=== PATIENT | female | born 1955 | race American Indian/Alaskan Native ===

== ENCOUNTER 2016-04-18 13:39 | Emergency (ER) | payer MEDICAID ==
[2016-04-18] MEDS ORDERED: MARCAINE 0.5% INFILTRATI ONE (14:29)
[2016-04-18] MEDS ORDERED: XYLOCAINE 1% 20 mL ONE (14:29)
[2016-04-18] MEDS ORDERED: MORPHINE ONE (14:39)
[2016-04-18] MEDS ORDERED: ZOFRAN ONE (14:39)
[2016-04-18] MEDS ORDERED: MORPHINE IV ONE ×2 (14:48→16:28)
[2016-04-18] MEDS ORDERED: ZOFRAN IV ONE (14:48)
--- NOTE | 2016-04-18 16:46 | Emergency Department Report ---
ED Fall HPI - General Chief Complaint: Extremity Injury, Upper Stated Complaint: FALL Time Seen by Provider: 04/18/16 14:40 Source: patient Mode of arrival: Stretcher - History of Present Illness Initial Comments: The patient states that she suffered a ground-level fall injuring her left and right hand. She is a very poor historian. She actually tells me that she has never injured her hand before. However she has previous x-rays indicating she had a metacarpal fracture and it looks like an injury to the DIP of her left fifth finger. In addition to that she tells me that she has had left hip pain for 3 months but has not seen anyone for that. She states that her hip feels worse since the fall as well as her lower back. It would appear that she does have some chronic pain. She had a mechanical fall; she did not have any prodromal symptoms, weakness dizziness etc. She reports no other complaint or injury. She arrives with an obvious left hand deformity. 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 Loss of Consciousness: none Prolonged Down Time?: no Symptoms Prior to Fall: none Location - Extremities: Left: Hand, Thigh (chronic l hip and back), Right: Hand Severity: moderate, severe Quality: aching Context: tripped/slipped Associated Symptoms: denies - Related Data Home Medications Medication Instructions Recorded Confirmed Last Taken NIFEdipine XL [Procardia Xl] 60 mg PO DAILY 07/28/15 07/28/15 07/28/15 Previous Rx's Medication Instructions Recorded Last Taken Type oxyCODONE /ACETAMINOPHEN [Percocet 1 tab PO Q6H PRN #15 tablet 10/01/15 Unknown Rx 5/325 mg] HYDROcodone/APAP 5-325 [[place] 1 each PO Q6HR PRN #14 tablet 12/23/15 Unknown Rx 5-325 mg TAB] Ketorolac [Toradol] 10 mg PO Q6H PRN #20 tablet 02/04/16 Unknown Rx oxyCODONE /ACETAMINOPHEN [Percocet 1 tab PO Q6HR PRN #20 tablet 04/18/16 Unknown Rx 5/325] Allergies Allergy/AdvReac Type Severity Reaction Status Date / Time No Known Allergies Allergy Verified 02/04/16 17:00 ED Review of Systems ROS: Stated complaint: FALL Other details as noted in HPI Constitutional: denies: chills, fever Eyes: denies: eye pain, eye discharge, vision change ENT: denies: ear pain, throat pain Respiratory: denies: cough, shortness of breath, wheezing Cardiovascular: denies: chest pain, palpitations Endocrine: no symptoms reported Gastrointestinal: denies: abdominal pain, nausea, diarrhea Genitourinary: denies: urgency, dysuria, discharge Musculoskeletal: as per HPI, back pain. denies: joint swelling, arthralgia Skin: denies: rash, lesions Neurological: denies: headache, weakness, paresthesias Psychiatric: denies: anxiety, depression Hematological/Lymphatic: denies: easy bleeding, easy bruising ED Past Medical Hx - Past Medical History Hx Hypertension: Yes Hx Diabetes: Yes (boderline no meds) Additional medical history: back pain, sciatica - Surgical History Hx Cholecystectomy: Yes Additional Surgical History: X 3. TUBAL LIGATION - Social History Smoking Status: Never Smoker Substance Use Type: None - Medications Home Medications: Home Medications Medication Instructions Recorded Confirmed Last Taken Type NIFEdipine XL [Procardia Xl] 60 mg PO DAILY 07/28/15 07/28/15 07/28/15 History oxyCODONE /ACETAMINOPHEN [Percocet 1 tab PO Q6H PRN #15 tablet 10/01/15 Unknown Rx 5/325 mg] HYDROcodone/APAP 5-325 [[place] 1 each PO Q6HR PRN #14 tablet 12/23/15 Unknown Rx 5-325 mg TAB] Ketorolac [Toradol] 10 mg PO Q6H PRN #20 tablet 02/04/16 Unknown Rx oxyCODONE /ACETAMINOPHEN [Percocet 1 tab PO Q6HR PRN #20 tablet 04/18/16 Unknown Rx 5/325] ED Physical Exam - General Limitations: No Limitations General appearance: alert, in no apparent distress - Head Head exam: Present: atraumatic, normocephalic - Eye Eye exam: Present: normal appearance. Absent: scleral icterus - ENT ENT exam: Present: normal exam, mucous membranes moist - Neck Neck exam: Present: normal inspection. Absent: tenderness, meningismus - Respiratory Respiratory exam: Present: normal lung sounds bilaterally. Absent: respiratory distress - Cardiovascular Cardiovascular Exam: Present: regular rate, normal rhythm. Absent: systolic murmur, diastolic murmur, rubs, gallop - GI/Abdominal GI/Abdominal exam: Present: soft, normal bowel sounds. Absent: distended, tenderness, guarding, rebound, rigid - Extremities Exam Extremities exam: Present: other (deformity l hand 1 cm lac r pip superficial) - Back Exam Back exam: Present: normal inspection - Neurological Exam Neurological exam: Present: alert, oriented X3, CN II-XII intact. Absent: motor sensory deficit - Psychiatric Psychiatric exam: Present: normal affect, normal mood - Skin Skin exam: Present: warm, dry, intact, normal color. Absent: rash ED Course Vital Signs 04/18/16 04/18/16 14:04 14:58 Temperature 99.4 F Pulse Rate 81 Respiratory 18 Rate Blood Pressure 190/84 O2 Sat by Pulse 97 99 Oximetry - Reevaluation(s) Reevaluation #1: Patient received IV analgesia. I performed a metacarpal block of her left hand using about 8 mL of lidocaine and Marcaine bilaterally. This achieved good results. Her finger fracture was well reduced. Her laceration was repaired. She was splinted and discharged. She will be referred to orthopedics. 04/18/16 16:47 - Laceration /Wound Repair Hand Wound Location: upper extremity Wound Length (cm): 1 Wound's Depth, Shape: superficial Wound Explored: clean Betadine Prep?: Yes Anesthesia: 1% Lidocaine Wound Debrided: minimal Suture Size/Type: 5:0 Number of Sutures: 2 Layer Closure?: No Sterile Dressing Applied?: Yes - Orthopedic Fracture Reduction Fracture #1 Consent Obtained: verbal consent Time Out Performed: No Side: left Fracture Reduction Location: finger Analgesia: digital block Technique: direct manipulation, traction/counter-traction Post Reduction X-rays Demonstrate: anatomical reduction Post-Reduction Neuro Exam: intact Post-Reduction Vascular Exam: intact Splint Applied: Yes Patient Tolerated Procedure: well Critical care attestation.: If time is entered above; I have spent that time in minutes in the direct care of this critically ill patient, excluding procedure time. ED Disposition Clinical Impression: Fracture of proximal phalanx of left hand, Chronic left hip pain Laceration of ring finger Qualifiers: Encounter type: initial encounter Qualified Code(s): S61.218A - Laceration without foreign body of other finger without damage to nail, initial encounter Lower back pain Qualifiers: Chronicity: chronic Back pain laterality: unspecified Sciatica presence: without sciatica Qualified Code(s): M54.5 - Low back pain; G89.29 - Other chronic pain Disposition: DISCHARGED TO HOME OR SELFCARE Is pt being admited?: No Does the pt Need Aspirin: No Condition: Stable Instructions: Finger Fracture (ED), Laceration (ED), Hip Sprain (ED), Arthralgia (ED) Additional Instructions: Sutures may be removed within 8 to 10 days. See orthopedist for further care of your other problems. Return any acute change or problem. Prescriptions: oxyCODONE /ACETAMINOPHEN [Percocet 5/325] 1 tab PO Q6HR PRN #20 tablet PRN Reason: Pain Referrals: PRIMARY CAREMD [Primary Care Provider] - 3-5 Days KATHARINA LANDEROS MD [Staff Physician] - 2-3 Days Time of Disposition: 16:55
[2016-04-18 17:37] VITALS: BP 164/81
--- NOTE | 2016-04-19 09:28 | XRay Report ---
LEFT HAND THREE VIEWS: 04/18/16 13:39:00 CLINICAL: Pain and deformity. FINDINGS: Comminuted transverse fracture of the proximal phalanx of the ring finger with lateral displacement of the major distal fracture fragment by almost one shaft width. No callus. Old healed fracture of the fourth metacarpal. A plate and screws traverse the first MCP joint. Swelling of the ring finger and swelling of the dorsum of the hand. No soft tissue air or foreign body. IMPRESSION: Acute traumatic displaced closed fracture of the proximal phalanx of the ring finger. Old healed fracture of the fourth metacarpal an status post fusion of the first MCP joint with a metal plate and screws.
--- NOTE | 2016-04-19 09:30 | XRay Report ---
LEFT HAND THREE VIEWS: 04/18/16 16:17 CLINICAL: Post reduction. FINDINGS: Since the previous exam at 14:51, the fracture of the proximal phalanx of the ring finger has been reduced. Alignment is near-anatomic. Exam is otherwise unchanged. IMPRESSION: Satisfactory reduction of fracture of the proximal phalanx of the ring finger.
--- NOTE | 2016-04-19 09:31 | XRay Report ---
LUMBAR SPINE THREE VIEWS: 04/18/16 13:39:00 CLINICAL: Fall and back pain. FINDINGS: A crosstable lateral views demonstrate normal alignment. Upper lumbar and lower thoracic levoscoliosis. Degenerative disc disease with vacuum disc phenomenon at L4-5. No fracture or subluxation. Multilevel facet joint sclerosis. The pedicles are intact. Normal soft tissues. IMPRESSION: Scoliosis and degenerative disc and facet joint disease. No apparent traumatic injury.
--- NOTE | 2016-04-19 09:32 | XRay Report ---
LEFT HIP THREE VIEWS: 04/18/16 13:39:00 CLINICAL: Fall and left hip pain. FINDINGS: Normal bones, joints and soft tissues. No fracture or dislocation. IMPRESSION: Normal.
== END 2016-04-18 17:18 | disposition home or self-care (01) ==
LOC: ED 13:39
DX: S62.645A Nondisplaced fracture of proximal phalanx of left ring finger, initial encounter for closed fracture (principal); S61.218A Laceration without foreign body of other finger without damage to nail, initial encounter; M54.5 Low back pain; M25.552 Pain in left hip; G89.29 Other chronic pain; I10 Essential (primary) hypertension; E11.9 Type 2 diabetes mellitus without complications; Z90.49 Acquired absence of other specified parts of digestive tract; Z98.51 Tubal ligation status; W01.0XXA Fall on same level from slipping, tripping and stumbling without subsequent striking against object, initial encounter; Y93.89 Activity, other specified; Y99.8 Other external cause status; Y92.009 Unspecified place in unspecified non-institutional (private) residence as the place of occurrence of the external cause
CPT/HCPCS: 12001; 26725; 72100; 73130; 73502; 96374; 96375; 96376; 99284; J2270; J2405

== ENCOUNTER 2016-05-08 17:11 | Emergency (ER) | payer MEDICAID ==
[2016-05-08 17:52] VITALS: BP 167/87
--- NOTE | 2016-05-08 18:51 | Emergency Department Report ---
HPI - General Chief Complaint: Extremity Problem,Nontraumatic Time Seen by Provider: 05/08/16 18:45 - HPI HPI: 60-year-old -Irish female with a past medical history of borderline 80s and hypertension comes in with a complaint of lower back and both hip pain that shoots down her left leg. Patient reports this isn't present for the last 2 weeks. Upon review of chart noticed the patient was here and 04/22/2017 as well as 04/18/2016 for the same issues. Patient reports that she just has an appointment for next Wednesday with orthopedic provider. Patient reports no known drug allergies. ED Past Medical Hx - Past Medical History Hx Hypertension: Yes Hx Diabetes: Yes (boderline no meds) Additional medical history: back pain, sciatica - Surgical History Hx Cholecystectomy: Yes Additional Surgical History: X 3. TUBAL LIGATION - Social History Smoking Status: Current Every Day Smoker Substance Use Type: None - Medications Home Medications: Home Medications Medication Instructions Recorded Confirmed Last Taken Type NIFEdipine XL [Procardia Xl] 60 mg PO DAILY 07/28/15 07/28/15 07/28/15 History oxyCODONE /ACETAMINOPHEN [Percocet 1 tab PO Q6H PRN #15 tablet 10/01/15 Unknown Rx 5/325 mg] HYDROcodone/APAP 5-325 [[place] 1 each PO Q6HR PRN #14 tablet 12/23/15 Unknown Rx 5-325 mg TAB] Ketorolac [Toradol] 10 mg PO Q6H PRN #20 tablet 02/04/16 Unknown Rx Cyclobenzaprine HCl [Flexeril 5 MG 5 mg PO TID #10 tab 04/18/16 Unknown Rx TAB] oxyCODONE /ACETAMINOPHEN [Percocet 1 tab PO Q6HR PRN #20 tablet 04/18/16 Unknown Rx 5/325] Cyclobenzaprine [Flexeril] 10 mg PO TID PRN #30 tablet 04/25/16 Unknown Rx HYDROcodone/APAP 5-325 [[place] 1 each PO Q6HR PRN #12 tablet 04/25/16 Unknown Rx 5/325] Acetaminophen with Codeine 1 tab PO Q6HR #20 tab 05/08/16 Unknown Rx [Acetaminophen-Codeine #4 TAB] Ibuprofen [Motrin 800 MG tab] 800 mg PO Q8HR PRN #30 tablet 05/08/16 Unknown Rx ED Review of Systems ROS: Stated complaint: SCIATICA NERVE/HIP PAIN Other details as noted in HPI Constitutional: denies: chills, fever Gastrointestinal: denies: abdominal pain, nausea, diarrhea Genitourinary: denies: urgency, dysuria, discharge Musculoskeletal: back pain Neurological: denies: headache, weakness, paresthesias Physical Exam - Physical Exam Vital Signs: Vital Signs 05/08/16 17:45 Temperature 99.1 F Pulse Rate 82 Respiratory 20 Rate Blood Pressure 167/87 O2 Sat by Pulse 100 Oximetry General: GENERAL: Alert and oriented x3, no apparent distress, Normal Gait, atraumatic. HEAD: Head is normocephalic and a-traumatic. EYES: Extra ocular muscles are intact. Pupils are equal, round, and reactive to light and accommodation. LUNGS: Symetrical with respiration, No wheezing, no rales or crackles, CTAB. HEART: S1, S2 present, regular rate and rhythm without murmur, no rubs, no gallops. EXTREMITIES/MUSCULOSKELETAL: No cyanosis, clubbing, rash, lesions or edema. Full ROM bilaterally. UE/LE Pulses 2+ bilaterally. LE and UE 5+ strength bilaterally straight leg exam positive left 15 angle right leg positive at 30 angle. There is tenderness to the left sacral notch. NEUROLOGIC: No focal Deficit, Cranial nerves II through XII are grossly intact. No loss of sensation, No facial droop, Negative rhomberg. PSYCHIATRIC: Mood is congruent with affect, denies suicidal or homicidal ideations. SKIN: Warm and dry, No lesions, No ulceration or induration present ED Course Vital Signs 05/08/16 17:45 Temperature 99.1 F Pulse Rate 82 Respiratory 20 Rate Blood Pressure 167/87 O2 Sat by Pulse 100 Oximetry ED Medical Decision Making - Medical Decision Making Assessment evaluated with his provider fast track. Discussed the patient we'll give her Toradol shot as well as her [place]. Discussed with her that she needs to follow with a pain management provider since she's been here 2 times in the month of April for the same issue. That she should follow-up for best management of her pain. Verbalized understanding Critical care attestation.: If time is entered above; I have spent that time in minutes in the direct care of this critically ill patient, excluding procedure time. ED Disposition Clinical Impression: Low back pain with sciatica Qualifiers: Chronicity: chronic Back pain laterality: left Sciatica laterality: sciatica of left side Qualified Code(s): M54.42 - Lumbago with sciatica, left side; G89.29 - Other chronic pain Disposition: DISCHARGED TO HOME OR SELFCARE Is pt being admited?: No Does the pt Need Aspirin: No Condition: Stable Instructions: Chronic Back Pain (ED), Sciatica (ED), Lumbar Radiculopathy (ED) Additional Instructions: It's very important for follow-up with her primary care provider for pain management. Prescriptions: Acetaminophen with Codeine [Acetaminophen-Codeine #4 TAB] 1 tab PO Q6HR #20 tab Ibuprofen [Motrin 800 MG tab] 800 mg PO Q8HR PRN #30 tablet PRN Reason: Pain Referrals: PRIMARY CARE, [Primary Care Provider] - 3-5 Days [facility] [Provider Group] - 3-5 Days
[2016-05-08] MEDS ORDERED: NORCO 5/325 PO ONE (18:52)
[2016-05-08] MEDS ORDERED: TORADOL IM ONE (18:52)
== END 2016-05-08 19:50 | disposition home or self-care (01) ==
LOC: ED 17:11
DX: M54.42 Lumbago with sciatica, left side (principal); G89.29 Other chronic pain; I10 Essential (primary) hypertension; Z98.51 Tubal ligation status; F17.200 Nicotine dependence, unspecified, uncomplicated; Z98.890 Other specified postprocedural states; Z90.49 Acquired absence of other specified parts of digestive tract
CPT/HCPCS: 96372; 99282; J1885

== ENCOUNTER 2016-07-07 17:55 | Emergency (ER) | payer MEDICAID ==
[2016-07-08] MEDS ORDERED: TORADOL IV ONE (02:10)
[2016-07-08] MEDS ORDERED: KETALAR IV ONE ×2 (02:10→02:50)
--- NOTE | 2016-07-08 02:11 | Emergency Department Report ---
ED General Adult HPI - General Chief complaint: Pain General Stated complaint: SCIATIC NERVE Time Seen by Provider: 07/08/16 02:00 Source: patient, EMS, RN notes reviewed, old records reviewed Mode of arrival: Ambulatory Limitations: Physical Limitation - History of Present Illness Initial comments: This is a 60-year-old female. I have evaluated her in the past. Her primary care doctor is Dr. Hill. Past medical history includes hypertension, chronic back pain, arthritis. The patient today comes to the hospital with EMS for an exacerbation of her acute pain. The pain is bilateral paralumbar, left hip, left thigh, and right hip. The pain occasionally radiate down the left lower extremity. It is intermittent, present for months. The patient reports that her primary care doctor started her on Percocet, 10 mg, and she has follow-up next week with the pain clinic. Her primary care doctor also gave her Flexeril. The pain is sharp, increases with palpation and range of motion. It decreases with rest. There is no chest pain, severe headache, neck pain, abdominal pain or shortness of breath. There is no bladder or bowel retention or incontinence. There is no saddle anesthesia. -: Gradual Location: back, left, right, lower extremity Quality: aching Consistency: intermittent Improves with: medication, rest Worsens with: movement Associated Symptoms: malaise. denies: confusion, chest pain, cough, diaphoresis , fever/chills, headaches, loss of appetite - Related Data Home Medications Medication Instructions Recorded Confirmed Last Taken NIFEdipine XL [Procardia Xl] 60 mg PO DAILY 07/28/15 07/28/15 07/28/15 Previous Rx's Medication Instructions Recorded Last Taken Type oxyCODONE /ACETAMINOPHEN [Percocet 1 tab PO Q6H PRN #15 tablet 10/01/15 Unknown Rx 5/325 mg] HYDROcodone/APAP 5-325 [[place] 1 each PO Q6HR PRN #14 tablet 12/23/15 Unknown Rx 5-325 mg TAB] Ketorolac [Toradol] 10 mg PO Q6H PRN #20 tablet 02/04/16 Unknown Rx Cyclobenzaprine HCl [Flexeril 5 MG 5 mg PO TID #10 tab 04/18/16 Unknown Rx TAB] oxyCODONE /ACETAMINOPHEN [Percocet 1 tab PO Q6HR PRN #20 tablet 04/18/16 Unknown Rx 5/325] Cyclobenzaprine [Flexeril] 10 mg PO TID PRN #30 tablet 04/25/16 Unknown Rx HYDROcodone/APAP 5-325 [[place] 1 each PO Q6HR PRN #12 tablet 04/25/16 Unknown Rx 5/325] Acetaminophen with Codeine 1 tab PO Q6HR #20 tab 05/08/16 Unknown Rx [Acetaminophen-Codeine #4 TAB] Ibuprofen [Motrin 800 MG tab] 800 mg PO Q8HR PRN #30 tablet 05/08/16 Unknown Rx Ketorolac [Toradol] 10 mg PO Q6H PRN #20 tablet 07/08/16 Unknown Rx Allergies Allergy/AdvReac Type Severity Reaction Status Date / Time No Known Allergies Allergy Verified 02/04/16 17:00 ED Review of Systems ROS: Stated complaint: SCIATIC NERVE Other details as noted in HPI Constitutional: malaise. denies: fever Eyes: denies: vision change ENT: denies: epistaxis Respiratory: denies: cough Cardiovascular: denies: chest pain Gastrointestinal: denies: abdominal pain Genitourinary: as per HPI. denies: urgency Musculoskeletal: back pain, arthralgia, myalgia Neurological: paresthesias. denies: headache ED Past Medical Hx - Past Medical History Previous Medical History?: Yes Hx Hypertension: Yes Hx Diabetes: Yes (boderline no meds) Additional medical history: back pain, sciatica - Surgical History Past Surgical History?: Yes Hx Cholecystectomy: Yes Additional Surgical History: X 3. TUBAL LIGATION - Social History Smoking Status: Current Every Day Smoker Substance Use Type: Prescribed - Medications Home Medications: Home Medications Medication Instructions Recorded Confirmed Last Taken Type NIFEdipine XL [Procardia Xl] 60 mg PO DAILY 07/28/15 07/28/15 07/28/15 History oxyCODONE /ACETAMINOPHEN [Percocet 1 tab PO Q6H PRN #15 tablet 10/01/15 Unknown Rx 5/325 mg] HYDROcodone/APAP 5-325 [[place] 1 each PO Q6HR PRN #14 tablet 12/23/15 Unknown Rx 5-325 mg TAB] Ketorolac [Toradol] 10 mg PO Q6H PRN #20 tablet 02/04/16 Unknown Rx Cyclobenzaprine HCl [Flexeril 5 MG 5 mg PO TID #10 tab 04/18/16 Unknown Rx TAB] oxyCODONE /ACETAMINOPHEN [Percocet 1 tab PO Q6HR PRN #20 tablet 04/18/16 Unknown Rx 5/325] Cyclobenzaprine [Flexeril] 10 mg PO TID PRN #30 tablet 04/25/16 Unknown Rx HYDROcodone/APAP 5-325 [[place] 1 each PO Q6HR PRN #12 tablet 04/25/16 Unknown Rx 5/325] Acetaminophen with Codeine 1 tab PO Q6HR #20 tab 05/08/16 Unknown Rx [Acetaminophen-Codeine #4 TAB] Ibuprofen [Motrin 800 MG tab] 800 mg PO Q8HR PRN #30 tablet 05/08/16 Unknown Rx Ketorolac [Toradol] 10 mg PO Q6H PRN #20 tablet 07/08/16 Unknown Rx ED Physical Exam - General Limitations: No Limitations, Physical Limitation General appearance: alert, obese - Head Head exam: Present: atraumatic, normocephalic - Eye Eye exam: Present: normal appearance, EOMI. Absent: nystagmus - ENT ENT exam: Present: normal exam, normal orophraynx, mucous membranes moist, normal external ear exam - Neck Neck exam: Present: normal inspection, full ROM. Absent: tenderness, meningismus - Respiratory Respiratory exam: Present: normal lung sounds bilaterally. Absent: respiratory distress, wheezes, rales, rhonchi, stridor, chest wall tenderness, accessory muscle use, decreased breath sounds, prolonged expiratory - Cardiovascular Cardiovascular Exam: Present: regular rate, normal rhythm, normal heart sounds. Absent: bradycardia, tachycardia, irregular rhythm, systolic murmur, diastolic murmur, rubs, gallop - GI/Abdominal GI/Abdominal exam: Present: soft, normal bowel sounds. Absent: distended, tenderness, guarding, rebound, rigid, pulsatile mass - Extremities Exam Extremities exam: Present: normal inspection, full ROM, normal capillary refill , other (the compartments are soft. There are 2+ pulses noted in 4 extremities. The pelvis is stable. Sensation is intact to light touch and pinprick in 4 extremities. Downgoing plantar reflexes.). Absent: pedal edema, calf tenderness - Back Exam Back exam: Present: normal inspection, full ROM, paraspinal tenderness, vertebral tenderness - Neurological Exam Neurological exam: Present: alert, oriented X3, normal gait (the patient walks with a one-person assist with minimal discomfort.), other (Extraocular movements intact. Tongue midline. No facial droop. Facial sensation intact to light touch in the V1, V2, V3 distribution bilaterally. 5 and 5 strength in 4 extremities.. Sensation is intact to light touch in 4 extremities.). Absent : motor sensory deficit - Psychiatric Psychiatric exam: Present: normal affect, normal mood - Skin Skin exam: Present: warm, dry, intact, normal color. Absent: rash ED Course Vital Signs 07/07/16 07/08/16 07/08/16 18:34 00:39 00:45 Temperature 98.7 F Pulse Rate 75 76 Respiratory 20 18 16 Rate Blood Pressure 140/102 Blood Pressure 182/100 [Left] O2 Sat by Pulse 100 100 Oximetry 07/08/16 07/08/16 04:05 04:07 Temperature Pulse Rate 80 82 Respiratory 18 18 Rate Blood Pressure Blood Pressure 219/103 196/87 [Left] O2 Sat by Pulse 100 99 Oximetry - Reevaluation(s) Reevaluation #1: 07/08/16 04:15 Differential diagnosis: Urinary tract infection, DJD, acute exacerbation of chronic musculoskeletal pain assessment and plan: 60-year-old female with an acute exacerbation of her musculoskeletal pain. Her clinical findings today do not suggest epidural compression syndrome. There is no pulsatile abdominal mass, and she has equal pulses in 4 extremities. Patient occasionally has elevated blood pressure. Her pain and symptoms improved with Toradol and ketamine, 0.3 mg/kg. The patient reports that she has Percocet 10 at home, as well as Flexeril. The patient reports that she is follow-up next week with the pain clinic. She will be discharged with NSAIDs, and instructed to continue her current outpatient appointment. ED Medical Decision Making - Lab Data Vital Signs 07/07/16 07/08/16 07/08/16 18:34 00:39 00:45 Temperature 98.7 F Pulse Rate 75 76 Respiratory 20 18 16 Rate Blood Pressure 140/102 Blood Pressure 182/100 [Left] O2 Sat by Pulse 100 100 Oximetry 07/08/16 07/08/16 04:05 04:07 Temperature Pulse Rate 80 82 Respiratory 18 18 Rate Blood Pressure Blood Pressure 219/103 196/87 [Left] O2 Sat by Pulse 100 99 Oximetry Critical care attestation.: If time is entered above; I have spent that time in minutes in the direct care of this critically ill patient, excluding procedure time. ED Disposition Clinical Impression: Back pain Disposition: DISCHARGED TO HOME OR SELFCARE Is pt being admited?: No Does the pt Need Aspirin: No Condition: Stable Instructions: Lumbar Radiculopathy (ED) Additional Instructions: Continue current outpatient medications. Follow up with the pain specialist within the next week. Take the Toradol seemed for pain. If taking the Toradol , do not drink alcohol, combined with ibuprofen, Motrin, Aleve or aspirin. Dr. Boggs is a local pain specialist. Follow up with him or with the referred pain smoke since that you were given. Return to the ER right away with new pain, worsening pain, migration of pain, fevers or chills, intractable nausea or vomiting, inability to tolerate liquid feeds, extremity weakness, extremity numbness. Referrals: PRIMARY CAREMD [Primary Care Provider] - 3-5 Days RENNY PORRAS MD [Staff Physician] - 3-5 Days
[2016-07-08 04:08] VITALS: BP 196/87
[2016-07-08 04:31] LABS: Bilirubin,Urine NEG (Negative); Blood,Urine SM (Negative); Ketones,Urine NEG (Negative); Leukocyte Esterase,Urine NEG (Negative); Mucus,Urine FEW /HPF; Nitrite,Urine NEG (Negative); Protein,Urine <15 mg/dL mg/dL (Negative)
== END 2016-07-08 05:42 | disposition home or self-care (01) ==
LOC: ED 17:55
DX: M54.9 Dorsalgia, unspecified (principal); R53.81 Other malaise; I10 Essential (primary) hypertension; E11.9 Type 2 diabetes mellitus without complications; F17.200 Nicotine dependence, unspecified, uncomplicated
CPT/HCPCS: 51701; 81001; 87086; 96374; 96375; 99284; J1885

== ENCOUNTER 2021-08-22 15:02 | Outpatient (CLI) | payer MEDICAID ==
--- NOTE | 2021-08-22 16:53 | Mammography Report ---
BILATERAL DIGITAL DIAGNOSTIC MAMMOGRAM WITH CAD CONVENTIONAL, 08/22/2021 RIGHT LIMITED BREAST ULTRASOUND CLINICAL INFORMATION / INDICATION: Patient presents for evaluation of an area of focal pain and palpa ble concern in the right breast. N63.10 TECHNIQUE: Digital right mammographic imaging was performed. Spot compression views were obtained. Li mited ultrasound was performed. This examination was interpreted with the benefit of Computer-Aided D etection (CAD) analysis. COMPARISON: None available FINDINGS: Breast Density: The breasts are almost entirely fatty. MAMMOGRAPHIC FINDINGS: Corresponding with the site of palpable concern in the upper inner quadrant of the right breast, middle depth, there is a vague focal asymmetric density measuring up to approximat edward 4 cm. The mammographic appearance is suggestive of an area of contusion or fat necrosis. Targeted ultrasound was performed for further evaluation. Otherwise, no dominant mass, suspicious calcificati ons, or architectural distortion in either breast. ULTRASOUND FINDINGS: Targeted ultrasound evaluation was performed of the area of interest. Targeted ultrasound of the area palpable concern in the right breast 1:00 position located 5 cm from nipple r eveals a few areas of increased echogenicity, the largest measuring up to 2.1 x 0.8 x 0.9 cm. Additio iam, there is a benign cluster of cysts measuring up to 1.3 cm. IMPRESSION: 1. There is a focal asymmetric density at the site of palpable concern in the right breast, with a co rresponding area of increased echogenicity seen sonographically. The mammographic and sonographic fea tures are suggestive of either contusion or benign fat necrosis, though the patient does not recall a specific injury to the breast. Recommend clinical correlation and short interval follow-up right bimal gnostic mammogram and right breast ultrasound in 3 months to ensure stability or resolution. Follow up recommendation: Short term follow up in 3 months. BI-RADS Category 3: PROBABLY BENIGN. Followup in 3 months. A "normal" or negative report should not discourage follow up or biopsy of a clinically significant f inding. A written summary of these findings will be mailed to the patient. The patient will be entered into a mammography reporting system which will generate a reminder letter for the patient's next appointmen t at the appropriate interval. According to the [employer], yearly mammograms are recommended starting at age 40 and continuing as long as a woman is in good health. Breast MRI is recommended for women with an gamal roximately 20-25% or greater lifetime risk of breast cancer, including women with a strong family his tory of breast or ovarian cancer and women who have been treated for Hodgkin's disease. Signer Name: Kaylah Jaffe MD Signed: 08/22/2021 4:47 PM Workstation Name: [id number]
== END 2021-08-22 15:03 | disposition home or self-care (01) ==
LOC: MAMMO 15:02
PROVIDERS: ATTEND Family Medicine
DX: N63.10 Unspecified lump in the right breast, unspecified quadrant (principal); R92.8 Other abnormal and inconclusive findings on diagnostic imaging of breast
CPT/HCPCS: 77066